=== PATIENT | male | born 1995 | race Caucasian/White ===

== ENCOUNTER 2019-07-03 14:52 | Inpatient (IN) ==
[2019-07-03] MEDS ORDERED: LIBRIUM PO PRN (17:46)
[2019-07-03] MEDS ORDERED: ATARAX PO PRN (17:46)
[2019-07-03] MEDS ORDERED: DULCOLAX PR PRN (17:46)
[2019-07-03] MEDS ORDERED: MAALOX PLUS LIQUID PO PRN (17:46)
[2019-07-03] MEDS ORDERED: BENTYL PO PRN (17:46)
[2019-07-03] MEDS ORDERED: SENOKOT PO PRN (17:46)
[2019-07-03] MEDS ORDERED: SINEMET 25/100 PO PRN (17:46)
[2019-07-03] MEDS ORDERED: IMODIUM PO PRN (17:46)
[2019-07-03] MEDS ORDERED: DESYREL PO PRN (17:46)
[2019-07-03] MEDS ORDERED: PHENOBARBITAL IV PRN (17:46)
[2019-07-03] MEDS ORDERED: TUBERSOL ID ONE (17:46)
[2019-07-03] MEDS ORDERED: ZOFRAN IV PRN (17:46)
[2019-07-03] MEDS ORDERED: SEROQUEL PO PRN (17:46)
[2019-07-03] MEDS ORDERED: D5W 1,000 ML IV PRN (17:46)
[2019-07-03] MEDS: NICODERM PATCH TD PRN (18:36)
[2019-07-03] MEDS: LIBRIUM PO SCH ×2 (18:37→23:08)
[2019-07-03 18:42] LABS: URINE SOURCE VOIDED
[2019-07-03 18:47] LABS: BILIRUBIN URINE NEGATIVE (NEGATIVE); BLOOD URINE NEGATIVE (NEGATIVE); GLUCOSE URINE NEGATIVE (NEGATIVE); KETONE URINE TRACE mg/dL (NEGATIVE); LEUKOCYTES URINE TRACE (NEGATIVE); NITRITE URINE NEGATIVE (NEGATIVE); PROTEIN URINE TRACE mg/dL (NEGATIVE); SP GRAVITY URINE 1.025; UROBILINOGEN URINE 1 mg/dL
[2019-07-03 18:48] LABS: CLARITY CLEAR (CLEAR); COLOR YELLOW
[2019-07-03 18:50] LABS: URINE BACTERIA NEGATIVE /HFP; URINE CAST NONE SEEN /LPF; URINE CRYSTAL NONE SEEN /HPF; URINE EPITHELIAL CELLS <10 /HPF (<10); URINE RBC <10 /HPF (<10); URINE WBC <10 /HPF (<10); URINE YEAST NONE SEEN /HPF
[2019-07-03 18:50] LABS: HEMATOCRIT 37.5 % (42.0-52.0); HEMOGLOBIN 12.6 g/dL (14.0-18.0); MCH 28.9 PG (27-31); MCHC 33.6 g/dL (33-37); MPV 9.6 FL (7.4-10.4); RBC 4.36 XMIL (4.7-6.1); RDW 12.9 % (11.5-14.5); WBC 6.17 X1000 (4.8-10.8)
[2019-07-03 18:54] LABS: UR AMPHETAMINES QUAL NONE DETECTED (NONE DETECT); UR BARBITUATES QUAL NONE DETECTED (NONE DETECT); UR BENZODIAZEPIN QUAL NONE DETECTED (NONE DETECT); UR CANNABINOIDS QUAL PRESUMPTIVE POSITIVE (NONE DETECT); UR COCAINE QUAL NONE DETECTED (NONE DETECT); UR METHADONE QUAL NONE DETECTED (NONE DETECT); UR METHAMPHETAMINE QUAL NONE DETECTED (NONE DETECT); UR OPIATES QUAL NONE DETECTED (NONE DETECT); UR OXYCODONE QUAL NONE DETECTED (NONE DETECT); UR PCP QUAL NONE DETECTED (NONE DETECT); UR PROPOXYPHENE QUAL NONE DETECTED (NONE DETECT); UR TCA QUAL NONE DETECTED (NONE DETECT)
[2019-07-03 19:14] LABS: AMYLASE 68 U/L (20-200); LIPASE 32 U/L (13-60)
[2019-07-03 19:17] LABS: AGAP 9; ALBUMIN 3.9 g/dL (3.5-5.0); ALKALINE PHOSPHATASE 78 U/L (32-122); BUN 13 mg/dL (8-22); CALCIUM 8.3 mg/dL (8.8-10.2); CHLORIDE 103 mmol/L (98-107); COSMO 279; CREATININE 0.6 mg/dL (0.7-1.2); ESTIMATED GFR > 60; GLUCOSE 93 mg/dL (70-104); GOT 16 U/L (10-34); GPT 41 U/L (10-44); SODIUM 140 mmol/L (136-145); TCO2 28 mmol/L (25-35); TOTAL PROTEIN 6.3 g/dL (6.3-8.3)
[2019-07-03 19:29] LABS: INR 0.95; PROTIME 13.2 Seconds (11.0-16.0)
[2019-07-03] MEDS: TYLENOL PO PRN (19:37)
[2019-07-04] MEDS: LIBRIUM PO SCH ×3 (06:30→17:06)
[2019-07-04] MEDS: PROTONIX PO SCH (06:30)
[2019-07-04] MEDS: THERA M PLUS PO SCH (09:52)
[2019-07-04] MEDS: VITAMIN B-1 PO SCH (09:53)
[2019-07-04] MEDS: FOLIC ACID PO SCH (09:53)
[2019-07-04] MEDS: TYLENOL PO PRN (10:00)
[2019-07-04] MEDS: NICODERM PATCH TD PRN (10:00)
[2019-07-04] MEDS: ZOFRAN ODT PO PRN ×2 (10:11→13:26)
[2019-07-04] MEDS: ROBAXIN PO PRN ×2 (13:25→21:00)
[2019-07-04] MEDS: MOTRIN PO PRN ×2 (13:25→18:39)
--- NOTE | 2019-07-04 18:30 | PROGRESS NOTE ---
DATE: 07/04/2019 SUBJECTIVE: Patient initially noted that he was doing okay when I was in his room this morning. Denies any new nausea or vomiting. Denies any new muscle aches. States that most of his withdrawal symptoms have improved. Unfortunately, at some point in the afternoon, Estuardo's mother called the floor, stating that he was not being adequately treated, that he felt absolutely miserable, and if he did not get any relief, he was going to have to leave. On two separate occasions, nurse went to check on Mr. Ontiveros after his mom called the floor, and each time, he was quite somnolent and appeared to be sleeping very peacefully. Vital signs have remained stable. OBJECTIVE: Vital Signs: Stable. The patient is in no current respiratory distress. HEENT: Normocephalic. Neck: Supple. Cardiovascular: Regular rate. Chest: Clear, nonlabored. Abdomen: Soft, nondistended. Extremities: Moves all extremities. Neurologic: No changes. ASSESSMENT/PLAN: Polysubstance use and abuse. The patient has failed Suboxone twice with a reported history of selling Suboxone. He has been on IV heroin for the past 3 years. Unfortunately, his withdrawal is not going to be easy and is going to take time to wean down. We will continue to use symptomatic medications. We can add Toradol and clonidine if his blood pressure allows to try to mitigate some of his withdrawal symptoms, but unfortunately, currently cannot increase Librium as he is staying asleep most of the day between doses. cc: Carmelo Simon MD MTDD
[2019-07-05] MEDS: LIBRIUM PO SCH ×2 (04:05→09:32)
[2019-07-05] MEDS: PROTONIX PO SCH (06:17)
[2019-07-05 08:45] VITALS: BP 123/79
[2019-07-05] MEDS: THERA M PLUS PO SCH (09:31)
[2019-07-05] MEDS: VITAMIN B-1 PO SCH (09:31)
[2019-07-05] MEDS: FOLIC ACID PO SCH (09:32)
[2019-07-05] MEDS: NICODERM PATCH TD PRN (09:44)
--- NOTE | 2019-07-05 17:54 | DISCHARGE SUMMARY ---
ADMISSION DATE: 07/03/2019 DISCHARGE DATE: 07/05/2019 DISCHARGE DIAGNOSES: 1. Nausea and vomiting. 2. Abdominal pain. 3. Myalgias. 4. Paresthesias. 5. Paroxysmal sweating. 6. Opiate abuse, withdrawal, and stabilization with IV heroin as well as abusing Suboxone in the past. CONSULTATIONS: None. PROCEDURES: None. BRIEF HOSPITAL COURSE: The patient is a 24-year-old male who presented to the hospital. Placed on high-dose Librium taper. Given that he has failed Suboxone multiple times including selling it, this was not deemed appropriate medication assisted therapy although he certainly could consider Sublocade injections as an outpatient. As the patient wanted to wean off everything, we did discuss that and started him on Librium. The patient seemingly had a uneventful hospital course as each time he was evaluated by myself or the staff he was calm. Symptoms appear resolved. He is no longer sweating. He was sleeping most of the time and had to be physically aroused. However, his mom called the floor on 3 separate occasions stating that he was miserable, horrible, sweating, aching, vomiting, although none of this was witnessed by anyone in the hospital. DISPOSITION: Patient requests that he be discharged home. Discussed with him that it is not his best interest to be discharged, that he needs to go to further inpatient treatment. The patient declined this and stated that he was going home. States he has court in the morning, and therefore he would not use tonight in case they screen him tomorrow. The patient has weaned down off of Librium and does not require further medications. Therefore, we will discharge him home instead of allowing him to leave AMA. Discussed with him that he needs to call the staff back in the morning to make sure that further outpatient treatment has been arranged. cc: Carmelo Simon MD
--- NOTE | 2019-07-07 19:04 | HISTORY AND PHYSICAL ---
CHIEF COMPLAINT: Nausea and vomiting. HISTORY OF PRESENT ILLNESS: The patient is a 24-year-old male who presented [facility] [place] [facility] secondary to nausea, vomiting, abdominal pain, and myalgias. Notes he has been having opiate withdrawal symptoms that have caused relationship problems as well as financial and work problems. States he is tired of struggling to find money to [*]abuse. He is tired of chasing his habit and wants to get help to get his life back under control. SOCIAL HISTORY: He is single. He is currently unemployed. Lives at home in [facility]. PAST MEDICAL HISTORY: He has no chronic active medical problems other than polysubstance use and abuse. He does have a history of depression that has never been treated or diagnosed. ALLERGIES: No known drug allergies. MEDICATIONS: No prescription medications. REVIEW OF SYSTEMS: CINA score is 20 secondary to his mild tremors with his arms extended, fidgety, anxious, nervous. He is unable to sit still. Frequently has [*]. He has frequent nasal drainage with sniffing. He has watery eyes. Frequent yawning. Has frequent episodes of hot and cold chills with frequent episodes of sweating. He has muscle cramps, abdominal pain. Frequent episodes of nausea and vomiting. He has been having diarrhea. Denies any hematochezia, melena, hematuria, hematemesis. Denies dysuria, urinary frequency. Denies constipation. Denies headaches, blurry vision, change in vision, or focalized numbness, tingling, or weakness. SUBSTANCE ABUSE HISTORY: The patient has never been in a treatment facility before. He started drinking at the age of 16, currently drinks rarely. Started marijuana at 13, currently uses every day. Started depressants at 13, has been using it whenever he can get her hands on them. Started stimulants at 17, rarely uses, notes it was never his choice. Started cocaine at 21, only used a couple of times, has not used recently. Started opiates at 13, progressed from [place] and Lortab to Roxicodone to snorting it and the IV and has been using IV heroin daily for the past 3 years. Started smoking at 16, currently smokes a half a pack a day. FAMILY HISTORY: Positive for polysubstance use. PHYSICAL EXAMINATION: VITAL SIGNS: Reviewed. The patient denies any fevers. He is afebrile. He is in no current respiratory distress, but is obviously ill appearing. HEENT: Normocephalic. NECK: Supple. CARDIOVASCULAR: Regular rate. CHEST: Clear. ABDOMEN: Soft. EXTREMITIES: Moves all extremities. NEUROLOGIC: No focal changes. SKIN: Warm and dry. No rashes. ASSESSMENT: 1. Nausea and vomiting. 2. Abdominal pain. 3. Myalgias. 4. Paresthesias. 5. Paroxysmal sweating. 6. Tremors. 7. Opiate abuse withdrawal and stabilization. PLAN: 1. We will place the patient in the hospital. 2. Begin counseling. 3. We will start Librium taper and we will treat as tolerated. cc: Carmelo Simon MD
== END 2019-07-05 14:07 | disposition home or self-care (01) | DRG 897 ==
LOC: P.DIRADM 15:21 → P.MEDSURG 15:47
PROVIDERS: ADMIT Family Medicine; ATTEND Family Medicine